=== PATIENT | male | born 1970 | race Caucasian/White ===

== ENCOUNTER → 2023-04-01 06:31 | Outpatient (CLI) | payer OTHER, SELFPAY ==
--- NOTE | 2023-04-01 06:34 | DI.US.S_ITS ---
PROCEDURE: US ABDOMEN LIMITED INDICATIONS: ABNORMAL LIVER ENZYMES TECHNIQUE: Real-time scanning was performed of the abdominal and retroperitoneal organs, with image documentation. COMPARISON: None. FINDINGS: Liver: The liver is enlarged measuring 20.4 centimeters. The liver is increased in echogenicity. Gallbladder: No gallstones. No wall thickening. No pericholecystic edema. Negative sonographic Randall's sign. Biliary ducts: Intrahepatic bile ducts are non-dilated. Extrahepatic bile duct caliber measures 5.0 mm. Normal is 6-7 mm or less in diameter, or 10 mm or less post-cholecystectomy. Pancreas: Visualized portions of the pancreas are sonographically normal. Pancreatic tail is not well seen secondary to overlying bowel gas. Miscellaneous: No free abdominal fluid. IMPRESSION: Hepatomegaly and hepatic steatosis. Dictated by: Romain Barlow M.D. on 04/01/2023 at 8:34 Approved by: Romain Barlow M.D. on 04/01/2023 at 8:37
--- NOTE | 2023-04-01 06:35 | DI.CT.S_ITS ---
PROCEDURE: CT HEAD/BRAIN WO CON INDICATIONS: Altered mental status; hypertension; hyperglycerid TECHNIQUE: Noncontrast 4.5 mm thick angled axial sections acquired from the foramen magnum to the vertex, with coronal and sagittal reformats. For radiation dose reduction, the following was used: automated exposure control, adjustment of mA and/or kV according to patient size. COMPARISON: None. FINDINGS: Image quality: Diagnostic. CSF spaces: Basal cisterns are patent. No extra-axial fluid collections. Ventricles are normal in size and shape. Brain: No midline shift. No intracranial masses or hemorrhage. Myers-white matter interface is normal. Skull and face: Calvarium and visualized facial bones are intact, without suspicious lesions. Sinuses: Mild mucosal thickening of the left maxillary sinus. Visualized sinuses and mastoids are otherwise clear. IMPRESSION: No cause for patient's symptoms identified. No acute intracranial pathology. Dictated by: Romain Barlow M.D. on 04/01/2023 at 8:23 Approved by: Romain Barlow M.D. on 04/01/2023 at 8:24
--- NOTE | 2023-04-01 06:35 | DI.US.S_ITS ---
PROCEDURE: US CAROTID DOPPLER BI INDICATIONS: Altered mental status; HTN TECHNIQUE: Color and pulse Doppler interrogation was performed of both carotid systems, with image documentation and velocity measurements. COMPARISON: None. FINDINGS: Stenosis calculations are based on SRU (Society of Radi[employer] in Ultras[employer]) criteria. Right side: Brachial blood pressure: 148/91 mm Hg. Common carotid artery peak systolic velocity: 84 cm/sec. Internal carotid artery peak systolic velocity: 57 cm/sec. Internal carotid artery end diastolic velocity: 24 cm/sec. External carotid artery peak systolic velocity: 80 cm/sec. ICA/CCA peak systolic ratio: 0.7 . Myers scale imaging description: No significant plaque Percent internal carotid artery stenosis: Less than 50 percent . Vertebral artery: Flow direction is antegrade. Left side: Brachial blood pressure: 147/89 mm Hg. Common carotid artery peak systolic velocity: 127 cm/sec. Internal carotid artery peak systolic velocity: 69 cm/sec. Internal carotid artery end diastolic velocity: 26 cm/sec. External carotid artery peak systolic velocity: 77 cm/sec. ICA/CCA peak systolic ratio: 0.5 . Myers scale imaging description: No significant plaque Percent internal carotid artery stenosis: Less than 50 percent . Vertebral artery: Flow direction is antegrade. IMPRESSION: No significant stenosis of the bilateral ICAs. Dictated by: Romain Barlow M.D. on 04/01/2023 at 8:37 Approved by: Romain Barlow M.D. on 04/01/2023 at 8:38
== END ==
LOC: US 06:33
PROVIDERS: PCP Family Medicine; Referring Provider Family Medicine; Visit Provider Family Medicine
DX: R41.82 Altered mental status, unspecified (principal); I10 Essential (primary) hypertension; E78.1 Pure hyperglyceridemia; K75.81 Nonalcoholic steatohepatitis (NASH)
CPT/HCPCS: 70450; 76705; 93880

== ENCOUNTER → 2023-10-14 11:09 | Outpatient (CLI) | payer OTHER, SELFPAY ==
--- NOTE | 2023-10-14 | DI.US.S_ITS ---
PROCEDURE: US PERIPH VENOUS LOW EXTREM RT INDICATIONS: pain of right lower extremity TECHNIQUE: Real-time imaging, as well as color and pulse Doppler interrogation, were performed of the lower extremity deep veins from the inguinal ligament to the popliteal fossa, with documentation of the visualized calf veins. COMPARISON: None. FINDINGS: The common femoral, femoral, popliteal, and the visualized calf veins are normally compressible, and free of intraluminal thrombus. Color and pulse Doppler demonstrate normal phasic intraluminal flow. There is normal augmentation response to distal compression maneuver. IMPRESSION: No findings of lower extremity deep venous thrombosis. Dictated by: Joe Mathur M.D. on 10/14/2023 at 18:58 Approved by: Joe Mathur M.D. on 10/14/2023 at 18:58
== END ==
LOC: US 11:10
PROVIDERS: PCP Family Medicine; Referring Provider Orthopaedic Surgery; Visit Provider Orthopaedic Surgery
DX: M79.604 Pain in right leg (principal)
CPT/HCPCS: 93971

== ENCOUNTER → 2023-10-23 10:10 | Outpatient (CLI) | payer OTHER, SELFPAY ==
--- NOTE | 2023-10-23 10:11 | DI.MRI.S_ITS ---
PROCEDURE: MR LOWER LEG RT WO CON INDICATIONS: EVAL ACHILLES TENDON TECHNIQUE: Noncontrast coronal and sagittal T1 spin echo and STIR; axial T1 spin echo and T2 fast spin echo with fat saturation through the right leg COMPARISON: [facility] Outside Film, CR, XR TIBIA FIBULA RIGHT, 09/13/2023, 19:44. FINDINGS: Image quality: Excellent. Soft tissue: There is a T2 hyperintense, T1 intermediate lesion with internal septation in the superficial aspect of the medial head of the gastrocnemius, measuring 6.8 x 2.1 by 15.1 cm (axial by craniocaudal dimension. There is mild adjacent muscle edema in the medial head of the gastrocnemius. The Achilles tendon is intact. The flexors, extensors, and peroneal tendons are intact at the level of the ankle. Bones: Normal in signal. No acute fracture or dislocation. IMPRESSION: 15.1 cm T2 hyperintense T1 intermediate lesion with internal septation in the medial head of the gastrocnemius, incompletely evaluated. This may represent a hematoma if patient has history of trauma. However, underlying solid mass cannot be excluded given noncontrast exam. Recommend further evaluation with MR with intravenous contrast or targeted ultrasound. Dictated by: Nay Linares M.D. on 10/24/2023 at 12:12 Approved by: Nay Linares M.D. on 10/24/2023 at 12:21
== END ==
LOC: MRI 10:11
PROVIDERS: PCP Family Medicine; Referring Provider Orthopaedic Surgery; Visit Provider Orthopaedic Surgery
DX: M62.9 Disorder of muscle, unspecified (principal); M79.604 Pain in right leg
CPT/HCPCS: 73718